=== PATIENT | female | born 1965 | race Caucasian/White ===

== ENCOUNTER → 2016-11-30 08:02 | Outpatient (CLI) | payer BC ==
[2012-02-07 06:42] VITALS: BMI 34.1
== END | disposition home or self-care (01) ==
LOC: D.CT 08:02
DX: R91.1 Solitary pulmonary nodule (principal); F17.200 Nicotine dependence, unspecified, uncomplicated; J18.9 Pneumonia, unspecified organism

== ENCOUNTER → 2017-03-31 20:18 | Outpatient (CLI) | payer BC ==
[2012-02-07 06:42] VITALS: BMI 34.1
== END | disposition home or self-care (01) ==
LOC: D.MAMMO 16:15
DX: Z12.31 Encounter for screening mammogram for malignant neoplasm of breast (principal)

== ENCOUNTER 2017-05-02 12:01 | Outpatient (CLI) | payer BC ==
[2012-02-07 06:42] VITALS: BMI 34.1
== END 2017-05-02 13:53 ==
LOC: D.MAMMO 12:01
DX: R92.8 Other abnormal and inconclusive findings on diagnostic imaging of breast (principal)

== ENCOUNTER → 2018-08-17 18:18 | Outpatient (CLI) | payer OTHER ==
[2012-02-07 06:42] VITALS: BMI 34.1
== END | disposition home or self-care (01) ==
LOC: D.MAMMO 15:00
DX: R92.8 Other abnormal and inconclusive findings on diagnostic imaging of breast (principal)